=== PATIENT | female | born 1960 | race Caucasian/White ===

== ENCOUNTER 2018-08-29 13:59 | Emergency (ER) | payer OTHER ==
[~2018-08-29] VITALS: Ht 162.6 cm; Wt 59.0 kg
[~2018-08-29 13:59] MED LIST: CLORAZEPATE D3.75 M1 OR; NORCO 5-325 TA1 EACH PO
[2018-08-29 14:00] VITALS: BP 133/71
[2018-08-29] MEDS ORDERED: NORFLEX100 MG PO (16:56)
[2018-08-29] MEDS ORDERED: IBUPROFEN 600600 M1 PO (16:56)
== END 2018-08-29 17:12 | disposition home or self-care (01) ==
LOC: ER 13:59
DX: S16.1XXA Strain of muscle, fascia and tendon at neck level, initial encounter (principal); S46.812A Strain of other muscles, fascia and tendons at shoulder and upper arm level, left arm, initial encounter; S29.011A Strain of muscle and tendon of front wall of thorax, initial encounter; Z88.0 Allergy status to penicillin; Z88.2 Allergy status to sulfonamides; Z90.11 Acquired absence of right breast and nipple; V89.2XXA Person injured in unspecified motor-vehicle accident, traffic, initial encounter; Y92.89 Other specified places as the place of occurrence of the external cause; Y93.89 Activity, other specified; Y99.8 Other external cause status